=== PATIENT | female | born 1960 ===

== ENCOUNTER 2017-03-30 07:02 | Inpatient (IN) | payer MEDICAID ==
[2017-03-22 09:29] VITALS: BMI 25.5
[2017-03-30] MEDS ORDERED: Succinylcholine 200 mg/10 ml Inj IV ONE (12:23)
[2017-03-30] MEDS ORDERED: Propofol 10 mg/ml Inj (20 ML) ONE ×3 (12:23→15:58)
[2017-03-30] MEDS ORDERED: Lidocaine 4% (Laryng-O-Jet) Kit MM ONE (12:23)
[2017-03-30] MEDS ORDERED: Rocuronium 10 mg/ml (5 ml) ONE ×2 (12:23→14:45)
[2017-03-30] MEDS ORDERED: ePHEDrine 50 mg/ml Inj ONE (12:23)
[2017-03-30] MEDS ORDERED: Midazolam 2 MG/2 ML VIAL ONE (12:23)
[2017-03-30] MEDS ORDERED: Bupivacaine 0.5% Inj(30mL) ONE (12:29)
[2017-03-30] MEDS ORDERED: Dexamethasone 4 mg/1 ml ONE (12:52)
[2017-03-30] MEDS ORDERED: Lactated Ringer's 1,000 ML IV ONE (12:55)
[2017-03-30] MEDS ORDERED: APROTININ/FIBRINOGEN(TISSEEL) ONE (13:50)
[2017-03-30] MEDS ORDERED: Esmolol 100 mg/10ml Inj IV ONE (15:57)
[2017-03-30] MEDS ORDERED: SULFANILAMIDE (AVC) VAG CREAM VG ONE ×2 (16:21→16:30)
[2017-03-30] MEDS ORDERED: Naloxone 0.4 mg/ml Inj (Adult) ONE (16:29)
--- NOTE | 2017-03-30 16:31 | PCM.SURG1 ---
Surgeon's Initial Post Op Note - Surgeon's Notes Surgeon: amberly garnett md Vp [employer]: naomi LORENZ Type of Anesthesia: General Endo, Local Pre-Operative Diagnosis: Complete precedentia. chronic pelvic pain. fibroid uterus. urinary incontinece Operative Findings: stage IV uterine prolapse. Stage IV cystocele Rectocele. Extensive pelvic adhesions. normal bladder anatomy ureters efluxing urine freely Post-Operative Diagnosis: Complete precedentia. chronic pelvic pain. fibroid uterus. urinary incontinece. Pelvic adhesive disease Operation Performed: Total robotic hysterectomy bilateral salpingoophorectomy. Sacrocolpopexy. Insertion of mesh. Enterolysis. Exploration of ureters. diagnostic cystoscopy Specimen/Specimens Removed: uterus, tubes and ovaries cervix Estimated Blood Loss: EBL {In ML}: 20 Blood Products Given: N/A Drains Used: No Drains Post-Op Condition: Good Date of Surgery/Procedure: 03/30/17 Time of Surgery/Procedure: 16:31
--- NOTE | 2017-03-30 16:34 | PCM.OP ---
Operative Report - Operative Report Date of Surgery/Procedure: 03/30/17 Time of Surgery/Procedure: 16:32 Surgeon: Alireza Mooney MD Engine Tester: Esa LORENZ Anesthesia/Sedation: Gen with ET tube Pre-Operative Diagnosis: complete procedentia. Urinary incontience. Chronic pelvic pain Post-Operative Diagnosis: Complete uterine procedentia. Urinary incontience. Chronic pelvic pain. Pelvic adhesive disease Indication for Surgery: worsening pain from prolapse and urinary incontinece Operative Findings: stage IV uterine prolpase cystocele rectocele Procedure/Operation Description: Total robotic hysterectomy BSO. Sacrocolpopexy. Insertion of mesh. Enterolysis. diagnostic cystoscopy. DESCRIPTION OF OPERATION: This is a 56 years old female with symptomatic complete uterine prolapse, cystocele, rectocele and urinary incontinence. The patient completed an extensive preoperative workup, which included an ultrasound, as well as a Pap smear, chemistry and hematology studies. The patient reported these symptoms and problems as debilitating, and adversely affecting her quality of life. The patient reported this advanced uterine prolapse as debilitating and limiting her daily activities. Following a period of failed conservative management, and patient decision was made to proceed with a more invasive approach to address the above noted problems. A decision was finally made to proceed with a total robotic assisted hysterectomy , bilateral salpingo-oophorectomy, and vaginal vault suspension in the form of sacrocolpopexy with polypropylene mesh. A detailed description of this robotic procedure was given to the patient, all risks and benefits of the surgical modality was reviewed, printed material was also given to the patient regarding robotic surgery. After a detailed discussion about the pros and cons of using polypropylene mesh graft for sacrocolpopexy, all benefits and risks were reviewed including but not limited to the risk of infection, mesh erosion / extrusion, chronic pain and dyspareunia. In addition, the FDA warning about mesh utilization for uterine prolapse and incontinence surgery was reviewed in details, and specific written consent was obtained. The patient elected to proceed with a sacrocolpopexy today fully understanding the risk associated with utilizing mesh material. Other alternatives were also offered to the patient, she elected to proceed with a mesh sacrocolpopexy despite associated risks. The patient fully understood all the risks and benefits and elected to proceed with this proposed procedure. After proper consent was obtained from the patient was taken to the operating room, proper patient identification was completed. She was placed in dorsal lithotomy position; general anesthesia was induced without difficulty. Her legs were placed in adjustable Tu stirrups. Careful attention was placed to avoid hyper flexion or hyper- rotation of the lower extremities at the hip or the knee joints. She was prepped and draped appropriately for robotic assisted hysterectomy and sacrocolpopexy. Rush catheter was inserted under sterile conditions. Anterior lip of cervix was grasped with a tenaculum, and a V-care uterine manipulator was inserted through the cervix and secured. Local anesthetic solutions of 0.25% Marcaine with epinephrine were utilized to infiltrate the skin prior to all abdominal skin incisions. A total of 15 mL of 0.25% Marcaine was utilized throughout the procedure. While tenting the abdominal wall up, a Veress needle was inserted at a 45 degree angle. With CO2 insufflation, there was a drop in intraperitoneal pressure confirming correct placement. Insufflation was carried out to approximately 3 liters. A blunt robotic trocar and sleeve was introduced through the camera port in the midline, approximately 3 cm above the umbilicus. Then, using a 30-degree lens robotic scope, initial survey of the patient's abdomen revealed a mobile uterus and normal-appearing ovaries and distorted fallopian tubes. Under direct visualization, 3 additional robotic ports were utilized for this procedure. The first one, approximately 5 cm superior to the superior iliac crest on the RIGHT, a second port was approximately 5 cm superior to the superior iliac crest on the LEFT, and a third one was approximately 8 cm RIGHT lateral of the camera port in the midline. All robotic ports were approximately 8 mm in length. An title i assistant port was inserted approximately 8 cm LEFT lateral of the camera port, and the Versastep trocar and sleeve were introduced in the recommended fashion. A Veress and sheath were first introduced through a 1 cm incision, the Veress was removed and a trocar was introduced through the sheath and secured. Again, excellent visualization was noted confirming intra-peritoneal placement. The placement of the trocars was all accomplished under careful and meticulous placement under direct visualization. Following the placement of all trocars, the da Didier robotic system was docked in a parallel side docking method without difficulty after the patient was placed in moderate Trendelenburg position and small bowel had been swept away out of the pelvis. The ureter was positively identified. The following instruments were utilized for this procedure: the bipolar cautery device, a monopolar bhupinder and finally a ProGrasp. Prior to the start of the hysterectomy, both ureters were visualized along the full course, peristalsis bilaterally. Extensive lysis of peritoneal and omental adhesions and lysis of bowel adhesions was accomplished utilizing sharp and blunt dissection. On the patient's right side, the IP and the round ligaments were identified cauterized and transected, the broad ligament was divided all the way down to the utero cervical junction bladder flap was then created by transecting the visceroperitoneum over the bladder reflection. In a similar fashion, the left round ligament, IP ligament and broad ligament were cauterized sealed and transected, taken down to the level of the cervical uterine junction. Uterine vessels on both sides were sealed and transected. The Uterosacral ligaments were sealed and transected. The monopolar bhupinder and PK were utilized to complete the colpotomy incision around the care vaginal ring. Excellent hemostasis was noted. The uterus, cervix, ovaries and fallopian tubes were delivered transvaginally through the colpotomy incision and sent to pathology for permanent analysis. The colpotomy incision was closed with 2-0 v LOC in a continuous fashion with excellent hemostasis. Attention was then turned to the presacral space. The peritoneum overlying it was tented upward and incised sagittaly all the way down to the posterior vaginal wall keeping the right ureter in view at all times. A longitudinal ligament of the sacrum was clearly visualized following this dissection and ready to accept the anchoring of the Y. mesh. The posterior vaginal wall was dissected free from the peritoneum and from the rectum using monopolar bhupinder. Two obturators had been placed, one in the vagina, one in the rectum, to assist with this dissection. The dissection was carried out to 5 cm from the vaginal apex / vaginal cuff. A similar dissection was carried out anteriorly with the same technique dissecting the bladder away from the vaginal cuff approximately 5 cm with clearance. Excellent hemostasis was noted. A polypropylene Y mesh then placed into the peritoneal cavity. With the aid of an surveillance operator in the vagina, and retracting the vaginal apex upward, the posterior short-arm of the Y mesh was anchored with 6 interrupted CV-2 Hollis-Bruce sutures to the posterior vaginal wall. In a similar fashion while retracting the vaginal apex down phillips, the anterior short-arm of the Y. mesh was anchored to the anterior vaginal wall with 7 interrupted sutures utilizing CV 2 Hollis-Bruce material. While applying upward tension to lift the vagina into the pelvic cavity to approximate the full length of the vagina in a tension-free fashion and approximation of the length of the long arm of the Y. mesh was marked to be entered onto the longitudinal ligament of the sacrum. 1 interrupted CV-2 Hollis-Bruce suture as well as 2 interrupted 2-0 Prolene sutures were used to anchor the Y. mesh to the longitudinal ligament. The peritoneum was then closed with running 2-0 Monocryl suture. The pelvis was and freed of all clots and debris. Excellent hemostasis was noted. The pelvis and abdomen were irrigated copiously and cleared of all clots and debris. FloSeal as well as Interceed was applied over the incision sites. Excellent hemostasis was once again noted. All robotic and laparoscopic instruments removed under direct visualization. The robotic arms were undocked, and a da Didier robotic system was wheeled away from the patient's bedside. Both title i assistant and camera ports were closed at the fascial layer utilizing a 0 Vicryl suture material in interrupted fashion. Pneumoperitoneum was reduced and all skin incisions were closed utilizing 4-0 Monocryl in a subcutaneous fashion. Dermabond was applied to all incisions. At the conclusion of this procedure, a diagnostic cystoscopy was completed. The Rush catheter was removed; the bladder was distended with approximately 350 cc of normal saline. A 17 Vietnamese 30 cystoscope was introduced through the urethra and a survey of the bladder anatomy was completed. The trigone, and the dome of the bladder appeared normal, both ureteral orifices appeared normal and were efluxing urine freely. The urethra appeared normal. A Rush catheter was reinserted. Vaginal packing was inserted to be removed the next morning. Patient emerged from general anesthesia without difficulty, and was taken to recovery room in stable condition. Prior to incision the patient received antibiotics, prior to closure sponge lap and needle counts were correct x2. Estimated Blood Loss: 20 Blood Replaced: none Sponge/Instrument Count: count was correct x2 Drains: none Complications: none Specimen: uterus cervix tubes and ovaries Discharge & Condition: as per criteria
[2017-03-30] MEDS ORDERED: ceFAZolin 2 GM in Sodium Chloride 0.9% 100 ML IVPB SCH (17:00)
[2017-03-30] MEDS: HYDROmorphone 0.5 mg/0.5 ml ISec IVP PRN ×2 (17:00→17:15)
[2017-03-30] MEDS: Lactated Ringer's 1,000 ML IV SCH (18:30)
[2017-03-30] MEDS: ceFAZolin 2 GM in Sodium Chloride 0.9% 100 ML IVPB SCH (21:09)
[2017-03-30] MEDS: Oxycodone/Acetaminophen 5/325 mg Tab PO PRN (21:18)
[2017-03-31] MEDS: ceFAZolin 2 GM in Sodium Chloride 0.9% 100 ML IVPB SCH ×2 (04:44→12:45)
[2017-03-31] MEDS: Lactated Ringer's 1,000 ML IV SCH (04:47)
[2017-03-31 06:42] LABS: BASO # 0.1 K/uL (0.0-0.2); BASO % 0.5 % (0.0-2.0); HEMOGLOBIN 12.8 g/dL (12.0-16.0); LYMPH # 0.9 K/uL (1.0-4.3); LYMPH % 6.9 % (20.0-40.0); MEAN CELL VOLUME 85.5 fl (81.0-99.0); MEAN CORPUSCULAR HEMOGLOBIN 28.6 pg (27.0-31.0); MEAN CORPUSCULAR HGB CONC 33.4 g/dL (33.0-37.0); MEAN PLATELET VOLUME 8.9 fl (7.2-11.7); MONO # 1.1 K/uL (0.0-0.8); MONO % 8.3 % (0.0-10.0); NEUT # 10.9 K/uL (1.8-7.0); NEUT % 84.3 % (50.0-75.0); NRBC % 0.1 % (0.0-0.0); PLATELET COUNT 183 K/uL (130-400); RBC 4.47 Mil/uL (3.80-5.20)
[2017-03-31 06:56] LABS: BLOOD UREA NITROGEN 14 mg/dl (7-17); CALCIUM 8.7 mg/dL (8.4-10.2); GFR AFRICAN-AMERICAN > 60; GFR NON-AFRICAN AMERICAN > 60
[2017-03-31 11:23] LABS: LYMPHOCYTE 9 % (20-50); MONOCYTE 5 % (0-10); NEUTROPHIL 86 % (42-75); PLATELET ESTIMATE NORMAL (NORMAL); TOTAL CELLS COUNTED 100
--- NOTE | 2017-03-31 13:39 | CP.PCM.PN ---
Subjective - Date & Time of Evaluation Date of Evaluation: 03/31/17 Time of Evaluation: 11:00 - Subjective Subjective: Patient states pain is improved with pain medication, but she is having a lot of pain in her abdomen. +void, +passing gas, +chavez diet denies CP/SOB/dizziness Objective - Vital Signs/Intake and Output Vital Signs (last 24 hours): Temp Pulse Resp BP Pulse Ox 99.4 F 77 20 99/63 L 96 03/31/17 12:15 03/31/17 12:15 03/31/17 12:15 03/31/17 12:15 03/31/17 12:15 Intake and Output: 03/31/17 03/31/17 06:59 18:59 Intake Total 1450 Output Total 1350 Balance 100 - Medications Medications: Current Medications Enalapril Maleate (Vasotec) 10 mg PO DAILY [facility] Last Admin: 03/31/17 09:18 Dose: 10 mg Hydromorphone HCl (Dilaudid) 0.5 mg IVP Q3H PRN PRN Reason: Pain, severe (8-10) Cefazolin Sodium 2 gm/ Sodium (Chloride) 100 mls @ 100 mls/hr IVPB Q8@0500,1300 ,2100 MAJO PRN Reason: Protocol Stop: 03/31/17 15:00 Last Admin: 03/31/17 12:45 Dose: 100 mls/hr Ketorolac Tromethamine (Toradol) 30 mg IVP 0000,0600,1200,1800 [facility]JO Last Admin: 03/31/17 11:34 Dose: 30 mg Ondansetron HCl (Zofran Inj) 4 mg IVP Q6 PRN PRN Reason: Nausea/Vomiting Oxycodone/Acetaminophen (Percocet 5/325 Mg Tab) 1 tab PO Q4H PRN PRN Reason: Pain, moderate (4-7) Stop: 04/02/17 16:35 Last Admin: 03/30/17 21:18 Dose: 1 tab - Labs Labs: 03/31/17 05:45 03/31/17 05:45 - GI/Abdominal Exam GI & Abdominal Exam: Distended (mild distention, incisions dry and intact no erythema, calves fot NT neg homas), Soft, Hypoactive Bowel Sounds - Exam Additional comments: packing removed, no vaginal bleeding Assessment and Plan (1) Procidentia of uterus Assessment & Plan: POD# 1 s/p total robotic hysterectomy, BSO, sacrocolpopexy, insertion of mesh enterolysis, cyst due to pain from procedure, will keep patient in house for pain mgmt, encourage PO intake and OOB d/w Dr. Bass, agrees with above Status: Acute (2) Uterine prolapse Status: Acute (3) Urinary incontinence Status: Acute (4) Chronic pelvic pain in female Status: Acute
[2017-04-01 00:13] VITALS: RESP 20
[2017-04-01 06:02] VITALS: PULSE 80
[2017-04-01] MEDS: Oxycodone/Acetaminophen 5/325 mg Tab PO PRN (06:07)
[2017-04-01 07:25] LABS: HEMOGLOBIN 13.1 g/dL (12.0-16.0); MEAN CELL VOLUME 85.5 fl (81.0-99.0); MEAN CORPUSCULAR HEMOGLOBIN 29.1 pg (27.0-31.0); MEAN CORPUSCULAR HGB CONC 34.1 g/dL (33.0-37.0); RBC 4.5 Mil/uL (3.80-5.20); RED CELL DISTRIBUTION WIDTH 13.8 % (11.5-14.5)
[2017-04-01 07:51] LABS: BLOOD UREA NITROGEN 17 mg/dl (7-17); CALCIUM 8.5 mg/dL (8.4-10.2); GFR AFRICAN-AMERICAN > 60; GFR NON-AFRICAN AMERICAN > 60
[2017-04-01 08:43] VITALS: BP 114/65; TEMP 98.8; O2SAT 96
--- NOTE | 2017-04-01 12:01 | CP.PCM.PN ---
Subjective - Date & Time of Evaluation Date of Evaluation: 04/01/17 Time of Evaluation: 11:59 - Subjective Subjective: Patient states pain is better. She is voiding, +passing gas, tolerating diet Objective - Vital Signs/Intake and Output Vital Signs (last 24 hours): Temp Pulse Resp BP Pulse Ox 98.8 F 80 20 114/65 96 04/01/17 08:15 04/01/17 08:15 04/01/17 08:15 04/01/17 08:15 04/01/17 08:15 - Medications Medications: Current Medications Enalapril Maleate (Vasotec) 10 mg PO DAILY [facility] Last Admin: 04/01/17 09:35 Dose: 10 mg Hydromorphone HCl (Dilaudid) 0.5 mg IVP Q3H PRN PRN Reason: Pain, severe (8-10) Ketorolac Tromethamine (Toradol) 30 mg IVP 0000,0600,1200,1800 [facility] Last Admin: 04/01/17 06:02 Dose: Not Given Ondansetron HCl (Zofran Inj) 4 mg IVP Q6 PRN PRN Reason: Nausea/Vomiting Oxycodone/Acetaminophen (Percocet 5/325 Mg Tab) 1 tab PO Q4H PRN PRN Reason: Pain, moderate (4-7) Stop: 04/02/17 16:35 Last Admin: 04/01/17 06:07 Dose: 1 tab - Labs Labs: 04/01/17 06:55 04/01/17 06:55 - GI/Abdominal Exam Additional comments: abd soft, less distended +BS, incisions dry and intact Assessment and Plan (1) Procidentia of uterus Assessment & Plan: POD#2 s/p robotic hysterectomy/sacrocolpopexy d/c home today rx percocet f/u 2 weeks activity as tolerate colace pre constipation d/w Dr Bass agrees with above Status: Acute (2) Uterine prolapse Status: Acute (3) Urinary incontinence Status: Acute (4) Chronic pelvic pain in female Status: Acute
== END 2017-04-01 14:30 | disposition home or self-care (01) | DRG 358 ==
LOC: H.OPSURG 07:02 → H.PEDS 16:34
PROVIDERS: ADMIT Obstetrics & Gynecology; ATTEND Obstetrics & Gynecology
PROC: 0UT2FZZ Resection of Bilateral Ovaries, Via Natural or Artificial Opening With Percutaneous Endoscopic Assistance (ICD-10-PCS; 2017-03-30)
PROC: 0DNW4ZZ Release Peritoneum, Percutaneous Endoscopic Approach (ICD-10-PCS; 2017-03-30)
PROC: 0USG4ZZ Reposition Vagina, Percutaneous Endoscopic Approach (ICD-10-PCS; 2017-03-30)
PROC: 8E0W4CZ Robotic Assisted Procedure of Trunk Region, Percutaneous Endoscopic Approach (ICD-10-PCS; 2017-03-30)
PROC: 0TJB8ZZ Inspection of Bladder, Via Natural or Artificial Opening Endoscopic (ICD-10-PCS; 2017-03-30)
PROC: 0DNU4ZZ Release Omentum, Percutaneous Endoscopic Approach (ICD-10-PCS; 2017-03-30)
PROC: 0DNE4ZZ Release Large Intestine, Percutaneous Endoscopic Approach (ICD-10-PCS; 2017-03-30)
PROC: 0UT9FZZ Resection of Uterus, Via Natural or Artificial Opening With Percutaneous Endoscopic Assistance (ICD-10-PCS; principal; 2017-03-30 11:00)
PROC: 0UT7FZZ Resection of Bilateral Fallopian Tubes, Via Natural or Artificial Opening With Percutaneous Endoscopic Assistance (ICD-10-PCS; 2017-03-30 11:00)
DX: N81.3 Complete uterovaginal prolapse (principal); R32 Unspecified urinary incontinence; D25.9 Leiomyoma of uterus, unspecified; N73.6 Female pelvic peritoneal adhesions (postinfective)